=== PATIENT | female | born 1990 | race Caucasian/White ===

== ENCOUNTER 2020-12-26 11:23 | Emergency (ER) | payer OTHER ==
[2020-12-26] MEDS ORDERED: IBUPROFEN 600 MG TABLET (FP) PO ONE ×2 (11:39→11:41)
[2020-12-26 11:48] VITALS: BP 122/78; PULSE 72; TEMP 98.4; BMI 25.4
== END 2020-12-26 11:52 | disposition home or self-care (01) ==
LOC: FER 11:23
DX: S00.93XA Contusion of unspecified part of head, initial encounter (principal); S16.1XXA Strain of muscle, fascia and tendon at neck level, initial encounter
CPT/HCPCS: 99283-25